=== PATIENT | female | born 1995 | race Caucasian/White ===

== ENCOUNTER 2025-03-02 05:59 | Day surgery (SDC) | payer OTHER, SELFPAY ==
[2025-03-02] VITALS (8 sets, daily range): BP systolic 92–111; BP diastolic 45–78; BMI 28.6
[2025-03-02 06:31] LABS: HCG, Urine Qualitative Screen Negative
[2025-03-02] MEDS: TYLENOL 1000 MG PO (06:37)
[2025-03-02] MEDS: NORMOSOL-R/PLASMALYTE-A 1000 IV (06:37)
[2025-03-02] MEDS: CELEBREX 200 MG PO (06:37)
== END 2025-03-02 09:40 | disposition home or self-care (01) ==
LOC: SDS 05:59
PROVIDERS: ATTENDING PHYSICIAN Orthopaedic Surgery Hand Surgery
DX: S62.625A Displaced fracture of middle phalanx of left ring finger, initial encounter for closed fracture (principal); X58.XXXA Exposure to other specified factors, initial encounter
CPT/HCPCS: 26567; 81025